=== PATIENT | male | born 1945 | race Caucasian/White ===

== ENCOUNTER 2019-03-14 14:01 | Emergency (ER) | payer MEDICARE, MEDICAID ==
[2019-03-14 14:07] VITALS: BP 156/78
--- NOTE | 2019-03-14 14:21 | ER Document Report ---
HPI - HPI Time Seen by Provider: 03/14/19 14:15 Onset/Duration: Persistent Quality of pain: Achy Pain Level: 2 Context: Patient presents with a complaint of a concern about fly larva being in his back. Patient has 2 nodular areas that he states have fly larva in them. Patient denies any recent travel. Associated Symptoms: denies: Fever, Headache Exacerbated by: Denies Relieved by: Denies Similar symptoms previously: No Recently seen / treated by doctor: No - ROS ROS below otherwise negative: Yes Systems Reviewed and Negative: Yes All other systems reviewed and negative - CONSTITUTIONAL Constitutional: DENIES: Fever, Chills - NEURO Neurology: DENIES: Headache, Weakness - RESPIRATORY Respiratory: DENIES: Coughing - GASTROINTESTINAL Gastrointestinal: DENIES: Nausea - MUSCULOSKELETAL Musculoskeletal: REPORTS: Back Pain - DERM Skin Color: Normal Notes: Nodular areas to left back Past Medical History - General Information source: Patient - Social History Smoking Status: Current Every Day Smoker Smoking Education Provided: Yes Frequency of alcohol use: None Drug Abuse: None Occupation: None Lives with: Alone Family History: Reviewed & Not Pertinent - Past Medical History Cardiac Medical History: Reports: Hx Coronary Artery Disease, Hx Heart Attack, Hx Hypercholesterolemia, Hx Hypertension Pulmonary Medical History: Reports: Hx COPD Psychiatric Medical History: Reports: Hx Anxiety, Hx Depression Past Surgical History: Reports: Hx Cardiac Surgery - CABG x3, Hx Coronary Artery Bypass Graft - Immunizations Hx Diphtheria, Pertussis, Tetanus Vaccination: Yes Vertical Provider Document - CONSTITUTIONAL Agree With Documented VS: Yes Exam Limitations: No Limitations General Appearance: WD/WN, No Apparent Distress - INFECTION CONTROL TRAVEL OUTSIDE OF THE [place] IN LAST 30 DAYS: No - HEENT HEENT: Atraumatic, Normocephalic - NECK Neck: Normal Inspection, Supple - RESPIRATORY Respiratory: Breath Sounds Normal, No Respiratory Distress - CARDIOVASCULAR Cardiovascular: Regular Rate, Regular Rhythm - BACK Back: Normal Inspection - MUSCULOSKELETAL/EXTREMETIES Musculoskeletal/Extremeties: CALIN BARNES - NEURO Level of Consciousness: Awake, Alert Motor/Sensory: No Motor Deficit - DERM Integumentary: Warm, Dry. negative: Abscess Adult Front & Back Diagram: 1 - Inclusion cyst 2 - Inclusion cyst Notes: Patient with inclusion cyst x2 to left thoracic back area, no overlying erythema, no fluctuance, no concern for abscess Course - Re-evaluation Re-evalutation: 03/14/19 14:27 Patient does report to nurse that [place] states that [place]. Patient also reports that he is mostly in animal but that depends on his diet and what he is eating. Patient does acknowledge a history of mental illness although does not currently want to be evaluated for this problem today. Patient is not suicidal or homicidal at this time. Again patient was offered evaluation by mental health team and declines at this time. Patient is well-kempt. Patient does not meet IVC criteria at this time. - Vital Signs Vital signs: Temp Pulse Resp BP Pulse Ox 98.8 F 100 18 156/78 H 93 03/14/19 14:06 03/14/19 14:06 03/14/19 14:06 03/14/19 14:06 03/14/19 14:06 Discharge - Discharge Clinical Impression: Inclusion cyst Condition: Stable Disposition: HOME, SELF-CARE Additional Instructions: Return immediately for any new or worsening symptoms, increased pain, fever, redness or any concerning symptoms Followup with your primary care provider, call tomorrow to make a followup appointment Follow-up with a physiotherapy assistant for management of cystic lesions to back. Forms: Smoking Cessation Education Referrals: WILMER NORRIS DO [ACTIVE STAFF] - Follow up tomorrow [facility] [Provider Group] - Follow up in 3-5 days
== END 2019-03-14 14:27 | disposition home or self-care (01) ==
LOC: ER 14:01
DX: L72.0 Epidermal cyst (principal); M54.9 Dorsalgia, unspecified; I25.10 Atherosclerotic heart disease of native coronary artery without angina pectoris; I10 Essential (primary) hypertension; J44.9 Chronic obstructive pulmonary disease, unspecified; F17.200 Nicotine dependence, unspecified, uncomplicated; Z95.1 Presence of aortocoronary bypass graft
CPT/HCPCS: 99282